=== PATIENT | male | born 1985 | race Hispanic/Latino ===

== ENCOUNTER 2020-09-27 18:21 | Emergency (ER) | payer OTHER, SELFPAY ==
[2020-09-27] MEDS ORDERED: Ondansetron PF 4 MG/2 ML Vial ONE (18:50)
[2020-09-27] MEDS ORDERED: Acetaminophen 500 MG TAB ONE (19:16)
[2020-09-27] MEDS ORDERED: Ibuprofen 200 MG TAB ONE (19:16)
[2020-09-28 02:28] LABS: SARS-CoV-2 PCR by NAA DETECTED (NotDetected)
== END 2020-09-27 20:44 | disposition home or self-care (01) ==
LOC: ERS 18:21
DX: U07.1 COVID-19 (principal)
CPT/HCPCS: 71045; 87635; 93005; 96374; J2405; U0003; U0005